=== PATIENT | female | born 1995 | race Caucasian/White ===

== ENCOUNTER 2018-07-06 08:08 | Day surgery (SDC) | payer OTHER, BC ==
[~2018-07-06] VITALS: Ht 172.7 cm; Wt 121.1 kg
[2018-07-06] MEDS ORDERED: SPRINTEC 35 MCG1 TAB PO (08:35)
[2018-07-06] MEDS ORDERED: VITAMIND3 5000 (08:36)
[2018-07-06] MEDS ORDERED: MULTI VITAMINS1 TAB PO (08:36)
[2018-07-06 08:49] VITALS: BP 141/92; PULSE 91; TEMP 97
[2018-07-06 10:05] VITALS: BP 124/74; PULSE 81; TEMP 97.5
[2018-07-06 10:20] VITALS: BP 117/92; PULSE 87
[2018-07-06 10:35] VITALS: BP 118/69; PULSE 76
== END 2018-07-06 10:45 | disposition home or self-care (01) ==
LOC: SDCO 08:08
DX: K92.1 Melena (principal); K59.00 Constipation, unspecified; E66.01 Morbid (severe) obesity due to excess calories; Z68.41 Body mass index [BMI] 40.0-44.9, adult; Z80.0 Family history of malignant neoplasm of digestive organs; Z96.653 Presence of artificial knee joint, bilateral
CPT/HCPCS: J2250; J2405; J3010; J7030

== ENCOUNTER → 2021-08-18 | Outpatient (CLI) | payer OTHER ==
[~2021-08-18] MED LIST: BIRTH CONTROL PO; LORTAB 5/500 501 TAB PO; MULTI VITAMINS1 TAB PO; NO HOME MEDICATIONS; NORCO 325 MG-7.1 TAB PO; SPRINTEC 35 MCG1 TAB PO; VITAMIND3 5000
== END ==
LOC: DIA.ED 08:41
DX: O24.419 Gestational diabetes mellitus in pregnancy, unspecified control (principal)
CPT/HCPCS: G0108

== ENCOUNTER 2021-09-06 15:54 | Emergency (ER) | payer OTHER ==
[~2021-09-06] VITALS: Ht 172.7 cm; Wt 115.9 kg
--- NOTE | 2021-09-06 16:39 | NUR ---
Pt seen in the ED for worsening covid symptoms. Pt reports she if G1L0 35 weeks due 10/08/21 pt of . Pt denies any contractions, leaking of fluid or vaginal bleeding and reports normal movement. See record for details.
[2021-09-06 16:47] LABS: HEMATOCRIT 39.9 % (37.0-47.0); HEMOGLOBIN 13.3 g/dl (12.5-16.0); MEAN CELL VOLUME 85 fl (80.0-100.0); MEAN CORPUSCULAR HEMOGLOBIN 28 pg (27-31); MEAN CORPUSCULAR HGB CONC 33 g/dl (33.0-37.0); MEAN PLATELET VOLUME 9.3 fl (7.4-10.4); PLATELET COUNT 187 K/mm3 (130-400); RED BLOOD COUNT 4.72 M/mm3 (4.10-5.30); REDCELL DISTRIBUTION WIDTH-CV 13.9 % (11.5-14.5)
[2021-09-06 17:01] LABS: ALANINE AMINOTRANSFERASE 18 U/L (0-55); ALBUMIN 2.5 gm/dL (3.5-5.0); ALKALINE PHOSPHATASE 144 U/L (40-150); ANION GAP 17 mmol/L (7-16); AST,SGOT 40 U/L (5-34); BILIRUBIN,TOTAL 2.5 mg/dL (0.2-1.2); BLOOD UREA NITROGEN 5 mg/dL (7-19); CALCIUM 9.1 mg/dL (8.4-10.2); CARBON DIOXIDE 9 mmol/L (22-29); CHLORIDE 108 mmol/L (98-107); CREATININE, serum 1.03 mg/dL (0.57-1.11); GLUCOSE 79 mg/dL (70-99); POTASSIUM 4.3 mmol/L (3.5-4.5); SODIUM 134 mmol/L (136-145); TOTAL PROTEIN 6.9 gm/dL (6.2-8.1)
[2021-09-06 17:21] LABS: TSH w REFLEX 1.396 uIU/mL (0.350-4.940)
[2021-09-06 17:22] LABS: TROPONIN-I < 0.010 ng/mL (0.00-0.033)
[2021-09-06 17:38] LABS: BAND 22 % (0-10); LYMPHOCYTE 10 % (20.0-51.0); MYELOCYTE 3 % (0-0); NEUTROPHILS 61 % (42.0-75.2)
[2021-09-06 17:39] LABS: PLATELET ESTIMATE NORMAL (NORMAL)
[2021-09-06 19:09] LABS: ARTERIAL BLD GAS O2 SATURATION 95.9 % (92-100); ARTERIAL BLD GAS TCO2 CT 7.5; ARTERIAL BLOOD GAS BASE EXCESS -16.3 (-2-2); ARTERIAL BLOOD GAS HCO3 7.1 meq/L (22-26); ARTERIAL BLOOD GAS PO2 84.6 mmHg (80-100); ARTERIAL BLOOD GAS pH 7.32 (7.35-7.45)
[2021-09-06 20:50] VITALS: BP 116/79; PULSE 136; TEMP 98.6
== END 2021-09-06 20:50 | disposition short-term general hospital (02) ==
LOC: COL.ER 15:54
PROVIDERS: Emergency Medicine
DX: O98.513 Other viral diseases complicating pregnancy, third trimester (principal); U07.1 COVID-19; J12.82 Pneumonia due to coronavirus disease 2019; Z3A.35 35 weeks gestation of pregnancy
CPT/HCPCS: J0696; J1100; J2765; J7030; Q9967

== ENCOUNTER 2021-10-10 18:17 | Inpatient (IN) | payer OTHER ==
[~2021-10-10] VITALS: Ht 170.2 cm; Wt 117.7 kg
[2021-10-10] VITALS (7 sets, daily range): BP systolic 100–118; BP diastolic 54–71; PULSE 66–85; TEMP 98.1
--- NOTE | 2021-10-10 18:45 | NUR ---
184- PATIENT AMBULATORY TO THE UNIT WITH BY HER SIDE. PATIENT IS A AT 40.2 WHO IS HERE FOR A CYTOTEC INDUCTION FOR DR. BULLOCK. PATIENT REPORTS GFM, NO LOF AND SOME SPOTTING TODAY. PATIENT REPORTS IRREGULAR CONTRACTIONS OVER THE LAST FEW DAYS. 185- EFM AND TOCO ON AND TRACING. VITAL SIGNS AND ASSESSMENT COMPLETED, CONSENTS SIGNED, PLAN OF CARE DISCUSSED. 1909- IV STARTED WITH FLUIDS RUNNING. PATIENT TOLERATED WELL. 1924- SVE /-3. 1929- CYTOTEC 25MCG GIVEN ORALLY. PATIENT DENIES FURTHER NEEDS. CALL LIGHT WITHIN REACH.
[2021-10-10] MEDS ORDERED: PRENATAL TABLET PO (19:14)
[2021-10-10] MEDS ORDERED: NATURAL IRON65 MG (19:15)
[2021-10-10 20:03] LABS: BASO % 0.3 % (0.0-2.0); EOS % 0.4 % (0.0-4.0); GRAN # 4.6 K/mm3 (1.4-6.5); GRAN % 68.4 % (42.2-75.2); HEMOGLOBIN 11.3 g/dl (12.5-16.0); LYMPH # 1.6 K/mm3 (1.2-3.4); MEAN CELL VOLUME 85 fl (80.0-100.0); MEAN CORPUSCULAR HEMOGLOBIN 29 pg (27-31); MEAN CORPUSCULAR HGB CONC 34 g/dl (33.0-37.0); MEAN PLATELET VOLUME 10.1 fl (7.4-10.4); MONO # 0.4 K/mm3 (0.1-0.6); MONO % 6.5 % (1.7-9.3); PLATELET COUNT 241 K/mm3 (130-400); RED BLOOD COUNT 3.91 M/mm3 (4.10-5.30); REDCELL DISTRIBUTION WIDTH-CV 14.6 % (11.5-14.5)
[2021-10-10 20:04] LABS: HEMATOCRIT 33.2 % (37.0-47.0)
--- NOTE | 2021-10-10 21:10 | NUR ---
2110- EFM AND TOCO OFF FOR INTERMITTENT MONITORING SO PATIENT CAN AMBULATE AND MOVE FREELY. DISCUSSED GETTING BACK ON THE MONITORS IN 40-45 MINUTES TO DO ANOTHER REACTIVE 20-30 MINUTE STRIP. PATIENT VERBALIZED UNDERSTANDING AND DENIES FURTHER NEEDS AT THIS TIME. CALL LIGHT WITHIN REACH.
--- NOTE | 2021-10-10 22:00 | NUR ---
2200- PATIENT ASSISTED BACK INTO BED IN THE LEFT LATERAL POSITION AND EFM AND TOCO BACK ON AND TRACING. VITALS STABLE. PATIENT DENIES FURTHER NEEDS AT THIS TIME. CALL LIGHT WITHIN REACH.
--- NOTE | 2021-10-10 22:45 | NUR ---
2245- THIS RN TO BEDSIDE TO TAKE EFM AND TOCO OFF PATIENT. PATIENT DOING INTERMITTENT MONITORING AND GOING TO WALK THE HALLS AND GET A SMALL SNACK BEFORE GETTING BACK ON AROUND 2330 AND STARTING PITOCIN PER ORDERS AROUND 0000. PATIENT DENIES FURTHER NEEDS. CALL LIGHT WITHIN REACH.
--- NOTE | 2021-10-10 23:30 | NUR ---
2330- THIS RN TO BEDSIDE TO ASSIST PATIENT BACK INTO BED. EFM AND TOCO ON AND TRACING. VITALS STABLE. PLAN OF CARE GOING FORWARD DISCUSSED AND QUESTIONS ANSWERED. 2335- SVE /-. ADVISED PATIENT AFTER 20 MINUTE REACTIVE STRIP, PITOCIN INDUCTION WILL START. SHE VERBALIZED UNDERSTANDING WITH NO FURTHER QUESTIONS. CALL LIGHT WITHIN REACH.
[2021-10-11] VITALS (64 sets, daily range): BP systolic 87–138; BP diastolic 52–87; PULSE 60–130; TEMP 97.5–98.4
--- NOTE | 2021-10-11 11:00 | NUR ---
1048 This RN at bedside. Pt wedged left. Fluids increased. 1052 B Cringan called and asked to bring in ephedrine. Ephedrine given. O2 started at 10L. FHR improving with patient's blood pressure. This Rn will continue to monitor.
--- NOTE | 2021-10-11 15:28 | NUR ---
1248 THIS RN IN ROOM. FHR DECELERATION NOTED. LR INFUSING RAPIDLY. PT REPOSITIONED. B CRINGAN IN ROOM. SVE 10/100/0. 1310 PATIENT BEGINS PUSHING WITH CONTRACTIONS.
--- NOTE | 2021-10-11 16:18 | NUR ---
[id number] This RN coaching patient through pushing with contractions. Dr. Buck on the floor. In the room intermittently checking patient's progress and monitoring FHR strip. 1435 Prepares room for delivery. Susy Ruiz and Dr Buck at patient's bedside along with this RN. 1443 Spontaneous vaginal delivery of viable female infant. is stimulated and bulb suctioned. to mother's chest. Cord clamped by Dr Buck and cut by father of baby. Ck Ruiz takes over care of . 1447 Spontaneous delivery of placenta. Pitocin bolus started per protocol. Fundal massage done by Dr Buck. Firm/midline. small amt of bleeding noted. 2nd degree perineal laceration repaired by Dr. Buck. fundal massage is performed. Pericare done. Gown changed. Safety precautions discussed. Epidural pump discontinued. Plan of care discussed with patient. Pt verbalizes understanding.
--- NOTE | 2021-10-11 17:25 | NUR ---
PT AMBULATING TO BATHROOM. STEADY ON FEET. GOWN CHANGED. PERICARE DONE. WILL BE TRANSFERRED IN WHEELCHAIR TO [facility]
[2021-10-12 02:00] VITALS: BP 106/69; PULSE 90; TEMP 97.6
[2021-10-12 08:25] VITALS: BP 119/69; PULSE 86; TEMP 98.6
[2021-10-12] MEDS ORDERED: IBU600 MG PO (08:46)
--- NOTE | 2021-10-12 09:05 | NUR ---
Initial visit; Parents thanked [employer] for offering congratulations and God's blessings for the of their daughter. Freight Sorter thanked family for choosing [facility].
[2021-10-12 12:45] VITALS: BP 105/65; PULSE 74; TEMP 98
== END 2021-10-12 17:15 | disposition home or self-care (01) | DRG 807 ==
LOC: OB 18:17 → LDR 18:34 → OB 18:34
PROVIDERS: ADMIT Obstetrics & Gynecology
PROC: 3E0P7VZ Introduction of Hormone into Female Reproductive, Via Natural or Artificial Opening (ICD-10-PCS; 2021-10-10)
PROC: 10E0XZZ Delivery of Products of Conception, External Approach (ICD-10-PCS; principal; 2021-10-11)
PROC: 0KQM0ZZ Repair Perineum Muscle, Open Approach (ICD-10-PCS; 2021-10-11)
DX: O48.0 Post-term pregnancy (principal); Z37.0 Single live birth; O24.420 Gestational diabetes mellitus in childbirth, diet controlled; O99.02 Anemia complicating childbirth; D64.9 Anemia, unspecified; O77.0 Labor and delivery complicated by meconium in amniotic fluid; O70.1 Second degree perineal laceration during delivery; O69.81X0 Labor and delivery complicated by cord around neck, without compression, not applicable or unspecified; Z3A.40 40 weeks gestation of pregnancy; Z86.16 Personal history of COVID-19
CPT/HCPCS: J2590; J2795; J7120